=== PATIENT | female | born 2000 | race Caucasian/White ===

== ENCOUNTER 2022-10-09 17:45 | Emergency (ER) | payer SELFPAY ==
[~2022-10-09] VITALS: Ht 165.1 cm
[2022-10-09 18:24] LABS: BILIRUBIN Negative (Negative); BLOOD Negative (Negative); CLARITY Cloudy (Clear); COLOR Yellow (Yellow); GLUCOSE Negative (Negative); KETONE Trace (Negative); LEUKO ESTERASE Negative (Negative); NITRITE Negative (Negative); PH 5.5 (4.5-8.0); SPECIFIC GRAVITY >= 1.030 (1.001-1.030)
[2022-10-09 18:32] LABS: BACTERIA 2+; MUCOUS 2+
[2022-10-09] MEDS ORDERED: VIBRAMYCIN100 MG PO (19:20)
== END 2022-10-09 19:46 | disposition home or self-care (01) ==
LOC: ED 17:45
PROVIDERS: Nurse Practitioner Family
DX: Z20.2 Contact with and (suspected) exposure to infections with a predominantly sexual mode of transmission (principal); Z88.8 Allergy status to other drugs, medicaments and biological substances

== ENCOUNTER 2023-01-22 15:35 | Emergency (ER) | payer SELFPAY ==
[~2023-01-22] VITALS: Ht 165.1 cm; Wt 99.8 kg
[~2023-01-22 15:35] MED LIST: VIBRAMYCIN100 MG PO
[2023-01-22] MEDS ORDERED: CYCLOBENZAPRINE5 M3 PO (17:50)
== END 2023-01-22 18:13 | disposition home or self-care (01) ==
LOC: ED 15:35
DX: S39.012A Strain of muscle, fascia and tendon of lower back, initial encounter (principal); Z88.8 Allergy status to other drugs, medicaments and biological substances; X50.1XXA Overexertion from prolonged static or awkward postures, initial encounter; Y93.89 Activity, other specified; Y92.009 Unspecified place in unspecified non-institutional (private) residence as the place of occurrence of the external cause; Y99.8 Other external cause status

== ENCOUNTER 2023-06-10 12:01 | Emergency (ER) | payer MEDICAID ==
[~2023-06-10] VITALS: Ht 165.1 cm; Wt 90.7 kg
[~2023-06-10 12:01] MED LIST changes: +CYCLOBENZAPRINE5 M3 PO
[2023-06-10] MEDS ORDERED: Motrin,Rufen800 MG PO (13:47)
== END 2023-06-10 14:04 | disposition home or self-care (01) ==
LOC: ED 12:01
DX: S86.911A Strain of unspecified muscle(s) and tendon(s) at lower leg level, right leg, initial encounter (principal); W17.89XA Other fall from one level to another, initial encounter; Y93.23 Activity, snow (alpine) (downhill) skiing, snowboarding, sledding, tobogganing and snow tubing; Y92.89 Other specified places as the place of occurrence of the external cause; Y99.8 Other external cause status; Z88.8 Allergy status to other drugs, medicaments and biological substances